=== PATIENT | male | born 1985 | race African-American/Black ===

== ENCOUNTER 2022-01-08 17:37 | Emergency (ER) | payer OTHER ==
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
[2022-01-08] MEDS ORDERED: IBUPROFEN 400 MG TAB ONE (19:22)
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
[2022-01-08] MEDS ORDERED: CYCLOBENZAPRINE 10 MG TAB ONE (19:58)
[2022-01-10 09:48] VITALS: BP 159/90; TEMP 97.6; O2SAT 100
== END 2022-01-08 19:52 | disposition home or self-care (01) ==
LOC: ER 17:37
DX: S39.012A Strain of muscle, fascia and tendon of lower back, initial encounter (principal); S43.491A Other sprain of right shoulder joint, initial encounter
CPT/HCPCS: 72100; 99283